=== PATIENT | male | born 1970 | race Asian ===

== ENCOUNTER 2018-12-29 18:08 | Emergency (ER) | payer OTHER ==
[2018-12-29] MEDS ORDERED: Tetracaine HCl/PF 0.5% 4 ML Bottle EYELF ONE (18:52)
--- NOTE | 2018-12-29 19:06 | EDM.PDOC ---
ED HPI GENERAL MEDICAL PROBLEM - General Chief Complaint: Eye Problems Stated Complaint: RIGHT EYE SOMETHING IN EYE Time Seen by Provider: 12/29/18 19:04 Source of Information: Reports: Patient History Limitations: Reports: No Limitations - History of Present Illness INITIAL COMMENTS - FREE TEXT/NARRATIVE: pt arrived with a piece of metal in the rt eye. This happened about 1 hr ago. he has felt like when the lid moves that it hurts alot. Onset: Today, Sudden Duration: Hour(s): Associated Symptoms: Reports: No Other Symptoms Treatments MORNING BABYSITTER: Reports: Other (see below) Other Treatments MORNING BABYSITTER: eye drops at home - Related Data Allergies Allergy/AdvReac Type Severity Reaction Status Date / Time No Known Allergies Allergy Verified 12/29/18 18:25 Home Meds: Home Meds NK [No Known Home Meds] 12/29/18 [History] Past Medical History Respiratory History: Reports: Asthma Social & Family History - Tobacco Use Smoking Status *Q: Never Smoker - Caffeine Use Caffeine Use: Reports: Coffee, Soda - Recreational Drug Use Recreational Drug Use: No ED ROS GENERAL - Review of Systems Review Of Systems: See Below Constitutional: Reports: No Symptoms HEENT: Reports: Other ( foreign body in rt eye. ) Respiratory: Reports: No Symptoms Cardiovascular: Reports: No Symptoms Endocrine: Reports: No Symptoms GI/Abdominal: Reports: No Symptoms : Reports: No Symptoms ED EXAM GENERAL W FULL EYE - Physical Exam Exam: See Below Text/Narrative:: pt arrived with a foreign body in his rt eye. He was grinding metal. Exam Limited By: No Limitations General Appearance: Alert, Anxious, Mild Distress, Other ( rt eye looks irritated. He has a small foreign body in the rt eye. There is nothing under the lid. Tetracine was inserted in the rt eye. The metal was removed with out difficulty) Ears: Normal External Exam Throat/Mouth: Normal Inspection Head: Atraumatic Neck: Normal Inspection Course - Vital Signs Last Recorded V/S: Last Vital Signs Temp 34.7 C L 12/29/18 18:27 Pulse 51 L 12/29/18 18:27 Resp 16 12/29/18 18:27 BP 129/59 L 12/29/18 18:27 Pulse Ox 98 12/29/18 18:27 - Orders/Labs/Meds Meds: Medications Discontinued Medications Generic Name Dose Route Start Last Admin Trade Name Freq PRN Reason Stop Dose Admin Tetracaine HCl 1 ml 12/29/18 18:52 12/29/18 18:57 Tetracaine 0.5% Steri-Unit Kathya EYELF 12/29/18 18:53 2 drop ASDIRECTED ONE Administration Departure - Departure Time of Disposition: 19:04 Disposition: Home, Self-Care 01 Condition: Fair Clinical Impression: Foreign body of right eye - Discharge Information Referrals: PCP,None [Primary Care Provider] - Forms: ED Department Discharge Care Plan Goals: gentamycin eye drops tid for 3 days.
== END 2018-12-29 19:12 | disposition home or self-care (01) ==
LOC: JP.ED 18:08
DX: T15.91XA Foreign body on external eye, part unspecified, right eye, initial encounter (principal)
CPT/HCPCS: 99282